=== PATIENT | male | born 1940 | race African-American/Black ===

== ENCOUNTER 2018-09-22 08:04 | Emergency (ER) | payer OTHER, MEDICARE ==
[~2018-09-22] VITALS: Ht 167.6 cm; Wt 76.2 kg
[2018-09-22 08:07] VITALS: BP 157/75; PULSE 65; RESP 19; Ht 167.6 cm; Wt 76.2 kg
--- NOTE | 2018-09-22 08:21 | ERD ---
ER Documentation Chief Complaint Chief Complaint l/U/Q abd pain "under rib" denies CP or SOB HPI 78-year-old male history of hypertension status post remote CABG presents to the ED complaining of a 2-day history of sharp, moderate, nonradiating left upper quadrant pain and this morning developed a rash in that area. Denies nausea, vomiting, diarrhea or constipation. No chest pain or palpitations. No shortness of breath or cough. No fevers or chills. ROS All systems reviewed and are negative except as per history of present illness. Medications Home Meds Active Scripts Tramadol HCl (Tramadol HCl) 50 Mg Tablet, 50 MG PO Q8, #12 TAB Prov:YOBANI RUTHERFORD MD 09/22/18 valACYclovir Hcl* (Valtrex*) 500 Mg Tablet, 1000 MG PO TID for 7 Days, TAB Prov:YOBANI RUTHERFORD MD 09/22/18 PMhx/Soc History of Surgery: Yes Anesthesia Reaction: No Hx Neurological Disorder: No Hx Respiratory Disorders: No Hx Cardiac Disorders: Yes (Coronary artery disease, hypertension) Hx Psychiatric Problems: No Hx Miscellaneous Medical Probl: No Hx Alcohol Use: Yes Hx Substance Use: No Hx Tobacco Use: No FmHx No family history relevant to presenting complaint Physical Exam Vitals Vital Signs Date Temp Pulse Resp B/P (MAP) Pulse Ox O2 O2 Flow FiO2 Time Delivery Rate 09/22/18 97.8 65 19 157/75 97 08:07 (102) Physical Exam Const: Mild distress due to pain Head: Atraumatic Eyes: Normal Conjunctiva ENT: Normal External Ears, Nose and Mouth. Neck: Full range of motion. Nontender. No lymphadenopathy. Resp: Clear to auscultation bilaterally Cardio: Regular rate and rhythm, no murmurs Chest Wall: Status post median sternotomy. Abd: Soft, non tender, non distended. Normal bowel sounds Skin: Left T5 dermatome vesicles on erythematous base Back: No midline or flank tenderness Ext: No cyanosis, or edema Neur: Awake and alert. No focal deficit. Psych: Normal Mood and Affect Results 24 hrs Current Medications Medications Dose Sig/Juancarlos Start Time Status Last (Trade) Ordered Route PRN Stop Time Admin Dose Reason Admin Ibuprofen 600 mg ONCE ONCE 09/22/18 DC 09/22/18 (Motrin) PO 09:00 09:07 09/22/18 09:01 Procedures/MDM DOCUMENTS REVIEWED: ED nurse, no prior records available MEDICAL DECISION MAKIN-year-old male history of hypertension status post remote CABG presents to the ED complaining of a 2-day history of sharp, moderate, nonradiating left upper quadrant pain and this morning developed a rash in that area. Abdominal exam is completely benign without tenderness, rebound, guarding, signs of peritonitis or an acute intra-abdominal process hence labs and advanced imaging studies not indicated. Skin rash consistent with herpes zoster infection of the T5 dermatome. Stable for discharge with antivirals, appropriate analgesics, precautionary instructions and outpatient follow-up as counseled. Counseled patient regarding diagnosis, risk of viral transmission and need for followup. Understands to return to ED if symptoms recur, worsen or any other concerns. Departure Diagnosis: Primary Impression: Acute abdominal pain in left upper quadrant Additional Impression: Herpes zoster Herpes zoster complications: without complications Qualified Codes: B02.9 - Zoster without complications Condition: Stable YOBANI RUTHERFORD MD Sep 22, 2018 08:21
[2018-09-22] MEDS ORDERED: TRAM50TA2 PO (08:59)
[2018-09-22] MEDS ORDERED: VALA500T4 PO (08:59)
[2018-09-22] MEDS ORDERED: IBUPROFEN 600 MG TAB PO ONE (09:00)
== END 2018-09-22 09:18 | disposition home or self-care (01) ==
LOC: E/R 08:04
DX: R10.12 Left upper quadrant pain (principal); I10 Essential (primary) hypertension; I25.10 Atherosclerotic heart disease of native coronary artery without angina pectoris; B02.9 Zoster without complications; Z95.1 Presence of aortocoronary bypass graft
CPT/HCPCS: 99283

== ENCOUNTER 2018-11-09 16:14 | Emergency (ER) | payer OTHER, MEDICARE ==
[~2018-11-09] VITALS: Ht 167.6 cm; Wt 74.2 kg
[~2018-11-09 16:14] MED LIST: ALLO300T2 PO; ATOR40TA68 PO; CEPH-443 PO; DILT120C62 PO; IBUP-1542 PO; LEVO500T48 PO; OXYC-431 PO; OXYC13.5 PO; PHEN-716 PO; PRAM0.5T PO; PREG50CA PO; SULF-182 PO; TRAM50TA2 PO; VALA500T4 PO
[2018-11-09 16:49] VITALS: Ht 167.6 cm; Wt 74.2 kg
[2018-11-09] MEDS ORDERED: CEFTRIAXONE 1 GM INJ IM ONE (21:30)
--- NOTE | 2018-11-09 21:46 | ERD ---
ER Documentation Chief Complaint Chief Complaint pt c/o incontinence and hematuria x 1 day HPI 78-year-old male presenting with hematuria and dysuria for the past 1 day. Overnight he did have an episode of incontinence which is not normal for him. However he has been incontinent throughout the rest of the day. He was experiencing some suprapubic discomfort and some lower back discomfort. He thought it was his spinal issues. So he went to his back doctor and he got an injection with steroids in his back. However the hematuria and urinary symptoms did not resolve, so he decided to come to the ER. He is denying any fever, chills, nausea, vomiting. He feels well otherwise. That hematuria seems to be on and off. No associated blood clots in the urine. He is not having any difficulty urinating. He denies any history of bladder problems or prostate problems. He denies history of UTI. ROS All systems reviewed and are negative except as per history of present illness. Medications Home Meds Active Scripts Phenazopyridine Hcl* (Phenazopyridine Hcl*) 100 Mg Tablet, 100 MG PO TID PRN for DYSURIA, #6 TAB Prov:ANTHONY CASTILLO MD 11/09/18 Cephalexin* (Keflex*) 500 Mg Capsule, 500 MG PO BID for 7 Days, CAP Prov:ANTHONY CASTILLO MD 11/09/18 Tramadol HCl (Tramadol HCl) 50 Mg Tablet, 50 MG PO Q8, #12 TAB Prov:YOBANI RUTHERFORD MD 09/22/18 valACYclovir Hcl* (Valtrex*) 500 Mg Tablet, 1000 MG PO TID for 7 Days, TAB Prov:YOBANI RUTHERFORD MD 09/22/18 Allergies Allergies: Coded Allergies: No Known Allergy (Unverified , 09/22/18) PMhx/Soc History of Surgery: Yes (HIP SURG , KNEE , BACK , TRIPLE BYPASS ) Anesthesia Reaction: No Hx Neurological Disorder: No Hx Respiratory Disorders: No Hx Cardiac Disorders: Yes (Coronary artery disease, hypertension) Hx Psychiatric Problems: No Hx Miscellaneous Medical Probl: No Hx Alcohol Use: Yes Hx Substance Use: No Hx Tobacco Use: No FmHx Family History: No diabetes Physical Exam Vitals Vital Signs Date Temp Pulse Resp B/P (MAP) Pulse Ox O2 O2 Flow FiO2 Time Delivery Rate 11/09/18 78 18 99/63 (75) 100 Room Air 21:50 11/09/18 98.7 85 20 111/65 95 16:49 (80) Physical Exam const: No acute distress. Well-appearing, nontoxic Head: Atraumatic Eyes: Normal Conjunctiva ENT: Normal External Ears, Nose and Mouth. Neck: Full range of motion. No meningismus. Resp: Clear to auscultation bilaterally Cardio: Regular rate and rhythm, no murmurs Abd: Soft, non tender, non distended. No masses. Normal bowel sounds Skin: No petechiae or rashes Back: No midline or flank tenderness Ext: No cyanosis, or edema Neur: Awake and alert Psych: Normal Mood and Affect Result Diagram: 11/09/18183711/09/181837 Results 24 hrs Laboratory Tests Test 11/09/18 18:38 White Blood Count 18.5 10^3/ul Red Blood Count 4.84 10^6/ul Hemoglobin 14.4 g/dl Hematocrit 44.8 % Mean Corpuscular Volume 92.6 fl Mean Corpuscular Hemoglobin 29.8 pg Mean Corpuscular Hemoglobin Concent 32.1 g/dl Red Cell Distribution Width 15.0 % Platelet Count 180 10^3/UL Mean Platelet Volume 11.4 fl Immature Granulocytes % 0.600 % Neutrophils % 86.3 % Lymphocytes % 5.1 % Monocytes % 7.7 % Eosinophils % 0.0 % Basophils % 0.3 % Nucleated Red Blood Cells % 0.0 /100WBC Immature Granulocytes # 0.110 10^3/ul Neutrophils # 16.0 10^3/ul Lymphocytes # 1.0 10^3/ul Monocytes # 1.4 10^3/ul Eosinophils # 0.0 10^3/ul Basophils # 0.1 10^3/ul Nucleated Red Blood Cells # 0.0 10^3/ul Prothrombin Time 13.7 Sec Prothrombin Time Ratio 1.1 INR International Normalized Ratio 1.04 Activated Partial Thromboplast Time 33.7 Sec Urine Color TITI Urine Clarity TURBID Urine pH 5.0 Urine Specific [place] 1.029 Urine Ketones TRACE mg/dL Urine Nitrite POSITIVE mg/dL Urine Bilirubin NEGATIVE mg/dL Urine Urobilinogen 1+ mg/dL Urine Leukocyte Esterase 2+ Anderson/ul Urine Microscopic RBC 76 /HPF Urine Microscopic WBC > 182 /HPF Urine Squamous Epithelial Cells FEW /HPF Urine Bacteria MANY /HPF Urine Mucus MANY /HPF Urine Hemoglobin 3+ mg/dL Urine Glucose NEGATIVE mg/dL Urine Total Protein 2+ mg/dl Sodium Level 140 mmol/L Potassium Level 4.6 mmol/L Chloride Level 105 mmol/L Carbon Dioxide Level 27 mmol/L Anion Gap 8 Blood Urea Nitrogen 19 mg/dl Creatinine 1.18 mg/dl Est Glomerular Filtrat Rate mL/min mL/min Glucose Level 123 mg/dl Calcium Level 9.5 mg/dl Current Medications Medications Dose Sig/Juancarlos Start Time Status Last (Trade) Ordered Route PRN Stop Time Admin Dose Reason Admin Ceftriaxone 1 gm ONCE ONCE 11/09/18 DC 11/09/18 Sodium IM 21:30 22:01 (Rocephin) 11/09/18 21:31 Procedures/MDM EMERGENT LABS AND DIAGNOSTIC STUDIES: Lab Results above were reviewed and interpreted by me. CBC: Leukocytosis, likely secondary to infection. No evidence of anemia BMP: no e/o clinically significant electrolyte abnormality severe acidosis, alkalosis, renal failure, diabetic ketoacidosis coags normal, no evidence of coagulopathy UA: findings consistent with infection Urine culture pending Initial Nursing notes reviewed. Previous Medical Records requested via the Electronic Health Record. EMERGENCY DEPARTMENT COURSE / MEDICAL DECISION MAKING: Patient presents with acute onset hematuria and urinary discomfort. He is afebrile, well-appearing, with no significant vital sign abnormalities. However his labs were notable for leukocytosis, consistent with most likely infection. This is consistent with his urinary symptoms and urinalysis findings. I have a low suspicion for bladder or kidney malignancy, however I explained to the patient that this does require further work-up. I recommended treatment for his infection with antibiotics. However regardless of this, he needs to follow-up with his primary care doctor to get a referral to a urologist to have further work-up as he does not have a history of UTIs and the etiology of this is uncl ear at this time. Patient is agreeable with the discharge plan. He was encouraged to return for any worsening symptoms. Prescription for keflex given after dose of ceftriaxone given in ED. Departure Diagnosis: Primary Impression: Hematuria Hematuria type: gross Qualified Codes: R31.0 - Gross hematuria Additional Impression: Cystitis Condition: Stable Patient Instructions: Hematuria, Bladder Infection, Male (Adult) Additional Instructions: Call your doctor for an appointment within the next 2 days. You will need a referral to a urologist as soon as possible. Return to the ER if you are having any worsening symptoms. ANTHONY CASTILLO MD Nov 09, 2018 21:45
[2018-11-09 21:50] VITALS: BP 99/63; PULSE 78; RESP 18
== END 2018-11-09 22:11 | disposition home or self-care (01) ==
LOC: E/R 16:14
DX: N30.91 Cystitis, unspecified with hematuria (principal); I25.10 Atherosclerotic heart disease of native coronary artery without angina pectoris; I10 Essential (primary) hypertension
CPT/HCPCS: 80048; 81001; 85025; 85610; 85730; 87086; 96372; 99284; J0696

== ENCOUNTER 2018-11-23 23:09 | Emergency (ER) | payer OTHER, MEDICARE ==
[~2018-11-23] VITALS: Ht 167.6 cm; Wt 72.7 kg
[2018-11-23 23:11] VITALS: Ht 167.6 cm; Wt 72.7 kg
[2018-11-23] MEDS ORDERED: SODIUM CHLORIDE 0.9% 1L BAG IV* STA (23:43)
[2018-11-24] MEDS ORDERED: ACETAMINOPHEN 500 MG TAB PO ONE (00:20)
[2018-11-24] MEDS ORDERED: KETOROLAC 15 MG INJ IV STA (01:21)
[2018-11-24] MEDS ORDERED: CEFTRIAXONE 1 GM/50 ML (PMX) 50 ML IVPB ONE (01:30)
--- NOTE | 2018-11-24 01:44 | ERD ---
ER Documentation Chief Complaint Chief Complaint woke up w/ fever 30 minutes ago, recent UTI - started abx 2 days ago HPI This is a 78-year-old male will go through 10 months ago with a recent UTI. Patient was on antibiotics 2 weeks ago and then again 2 days ago. He spiked a fever today. No nausea no vomiting. He did have some chills. No abdominal pain. No other current complaints. ROS All systems reviewed and are negative except as per history of present illness. Medications Home Meds Active Scripts Phenazopyridine Hcl* (Phenazopyridine Hcl*) 100 Mg Tablet, 100 MG PO TID PRN for DYSURIA, #6 TAB Prov:ANTHONY CASTILLO MD 11/09/18 Cephalexin* (Keflex*) 500 Mg Capsule, 500 MG PO BID for 7 Days, CAP Prov:ANTHONY CASTILLO MD 11/09/18 Tramadol HCl (Tramadol HCl) 50 Mg Tablet, 50 MG PO Q8, #12 TAB Prov:YOBANI RUTHERFORD MD 09/22/18 valACYclovir Hcl* (Valtrex*) 500 Mg Tablet, 1000 MG PO TID for 7 Days, TAB Prov:YOBANI RUTHERFORD MD 09/22/18 Allergies Allergies: Coded Allergies: No Known Allergy (Unverified , 11/24/18) PMhx/Soc History of Surgery: Yes (HIP SURG , KNEE , BACK , TRIPLE BYPASS ) Anesthesia Reaction: No Hx Neurological Disorder: No Hx Respiratory Disorders: No Hx Cardiac Disorders: Yes (Coronary artery disease, hypertension) Hx Psychiatric Problems: No Hx Miscellaneous Medical Probl: No Hx Alcohol Use: Yes Hx Substance Use: No Hx Tobacco Use: No Smoking Status: Never smoker Physical Exam Vitals Vital Signs Date Temp Pulse Resp B/P (MAP) Pulse Ox O2 O2 Flow FiO2 Time Delivery Rate 11/24/18 75 18 105/55 94 Room Air 01:00 (72) 11/24/18 101.2 00:26 11/24/18 85 17 132/94 100 Room Air 00:00 (107) 11/23/18 104.0 88 18 159/66 98 Room Air 23:59 (97) 11/23/18 104.0 93 16 130/69 95 23:11 (89) Physical Exam Const: No acute distress Head: Atraumatic Eyes: Normal Conjunctiva ENT: Normal External Ears, Nose and Mouth. Neck: Full range of motion. No meningismus. Resp: Clear to auscultation bilaterally Cardio: Regular rate and rhythm, no murmurs Abd: Soft, non tender, non distended. Normal bowel sounds Skin: No petechiae or rashes Back: No midline or flank tenderness Ext: No cyanosis, or edema Neur: Awake and alert Psych: Normal Mood and Affect Result Diagram: 11/23/185 11/23/185 Results 24 hrs Laboratory Tests Test 11/23/18 23:55 White Blood Count 13.4 10^3/ul Red Blood Count 4.36 10^6/ul Hemoglobin 13.1 g/dl Hematocrit 41.4 % Mean Corpuscular Volume 95.0 fl Mean Corpuscular Hemoglobin 30.0 pg Mean Corpuscular Hemoglobin Concent 31.6 g/dl Red Cell Distribution Width 14.5 % Platelet Count 155 10^3/UL Mean Platelet Volume 11.5 fl Immature Granulocytes % 0.700 % Neutrophils % 91.7 % Lymphocytes % 3.3 % Monocytes % 3.9 % Eosinophils % 0.1 % Basophils % 0.3 % Nucleated Red Blood Cells % 0.0 /100WBC Immature Granulocytes # 0.100 10^3/ul Neutrophils # 12.3 10^3/ul Lymphocytes # 0.5 10^3/ul Monocytes # 0.5 10^3/ul Eosinophils # 0.0 10^3/ul Basophils # 0.0 10^3/ul Nucleated Red Blood Cells # 0.0 10^3/ul Prothrombin Time 13.7 Sec Prothrombin Time Ratio 1.1 INR International Normalized Ratio 1.04 Activated Partial Thromboplast Time 31.4 Sec Sodium Level 137 mmol/L Potassium Level 4.1 mmol/L Chloride Level 102 mmol/L Carbon Dioxide Level 29 mmol/L Anion Gap 6 Blood Urea Nitrogen 20 mg/dl Creatinine 1.42 mg/dl Est Glomerular Filtrat Rate mL/min mL/min Glucose Level 114 mg/dl POC Venous Lactate 1.1 mmol/L Calcium Level 9.4 mg/dl Total Bilirubin 1.4 mg/dl Direct Bilirubin 0.00 mg/dl Indirect Bilirubin 1.4 mg/dl Aspartate Amino Transf (AST/SGOT) 23 IU/L Alanine Aminotransferase (ALT/SGPT) 25 IU/L Alkaline Phosphatase 70 IU/L Troponin I 0.015 ng/ml Total Protein 7.3 g/dl Albumin 4.0 g/dl Globulin 3.30 g/dl Albumin/Globulin Ratio 1.21 Current Medications Medications Dose Sig/Juancarlos Start Time Status Last (Trade) Ordered Route PRN Stop Time Admin Dose Reason Admin Sodium 2,180 ml BOLUS OVER 2 11/23/18 DC 11/24/18 Chloride HOURS STAT 23:43 00:27 (NS) IV* 11/23/18 23:44 1,000 mg ONCE ONCE 11/24/18 DC 11/24/18 Acetaminophen PO 00:20 00:26 (Tylenol 11/24/18 00:21 Tab) Ketorolac 15 mg ONCE STAT 11/24/18 DC Tromethamine IV 01:21 (Toradol) 11/24/18 01:27 Ceftriaxone 50 ml @ ONCE ONCE 11/24/18 Sodium 100 mls/hr IVPB 01:30 11/24/18 01:59 Procedures/MDM EKG: Rate/Rhythm: [Normal Sinus Rhythm] QRS, ST, T-waves: [No changes consistent w/ acute ischemia] Impression: [No evidence of ischemia or arrhythmia] Chest X-ray 1V Interpreted by me: Soft Tissue: No acute abnormalities Bones: No acute abnormalities Mediastinum/Cardiac Silhouette/Lungs: [No acute abnormalities] Medical decision making: This is 78-year-old male who has evidence of UTI. Checking his culture from his previous state, the patient is on an antibiotic does not penetrate. He is currently on Bactrim, there is resistance to the Bactrim based on his urine culture. A new urine cultures been sent off. He will be started on levo floxacillin which the patient is susceptible to help. Departure Diagnosis: Primary Impression: Fever Fever type: unspecified Qualified Codes: R50.9 - Fever, unspecified Additional Impression: UTI (urinary tract infection) Urinary tract infection type: site unspecified Hematuria presence: without hematuria Qualified Codes: N39.0 - Urinary tract infection, site not specified Condition: Stable NAUN LAMB Nov 24, 2018 01:44
[2018-11-24 02:16] VITALS: BP 100/53; PULSE 68; RESP 17
== END 2018-11-24 02:17 | disposition home or self-care (01) ==
LOC: E/R 23:09
DX: N39.0 Urinary tract infection, site not specified (principal); I10 Essential (primary) hypertension; I25.10 Atherosclerotic heart disease of native coronary artery without angina pectoris
CPT/HCPCS: 36415; 71045; 76775; 80053; 83605; 84484; 85025; 85610; 85730; 87040; 93005; 96374; 96375; 99285; J0696; J1885; J7030